=== PATIENT | male | born 2000 | race African-American/Black ===

== ENCOUNTER 2020-07-19 17:26 | Emergency (ER) | payer OTHER ==
[~2020-07-19] VITALS: Ht 188 cm; Wt 97.7 kg
--- NOTE | 2020-07-19 19:54 | REPVR ---
PROCEDURE INFORMATION: Exam: XR Right Foot Exam date and time: 07/19/2020 6:11 PM Age: 19 years old Clinical indication: Pain; Foot; Right; Additional info: Right foot injury TECHNIQUE: Imaging protocol: XR Right foot. Views: 3 or more views. COMPARISON: No relevant prior studies available. FINDINGS: Bones/joints: Normal. Soft tissues: Normal. IMPRESSION: No acute findings. Electronically signed by: Eliu Goldstein On 07/19/2020 19:54:36 PM
[2020-07-19 20:17] VITALS: BP 130/70
== END 2020-07-19 20:26 | disposition home or self-care (01) ==
LOC: M ED 17:26
DX: S90.31XA Contusion of right foot, initial encounter (principal); W22.09XA Striking against other stationary object, initial encounter; Y92.098 Other place in other non-institutional residence as the place of occurrence of the external cause; Y93.89 Activity, other specified; Y99.8 Other external cause status; Z91.013 Allergy to seafood